=== PATIENT | male | born 1930 | race Caucasian/White ===

== ENCOUNTER 2016-12-31 13:59 | Inpatient (IN) | payer OTHER ==
[2016-12-31] MEDS ORDERED: diphenhydrAMINE 25 MG CAP PO ONE ×2 (14:03→14:27)
[2016-12-31] MEDS ORDERED: FAMOTIDINE 20 MG TAB PO ONE (14:03)
[2016-12-31] MEDS ORDERED: NS 1,000 ML IV ONE (14:03)
[2016-12-31] MEDS ORDERED: DIAZEPAM 5 MG TAB PO ONE (14:03)
[2016-12-31] MEDS ORDERED: ASPIRIN 81 MG CHEWABLE TAB PO ONE (14:04)
[2016-12-31] MEDS ORDERED: MIDAZOLAM 2 MG/2 ML VIAL ONE ×2 (14:21→17:41)
[2016-12-31] MEDS ORDERED: LIDOCAINE 1% 30 ML SDV ONE (14:21)
[2016-12-31] MEDS ORDERED: fentaNYL 100 MCG/2 ML INJ ONE ×2 (14:21→18:11)
[2016-12-31] MEDS ORDERED: IOPAMIDOL (ISOVUE-370) 150 ML BTL IV ONE ×4 (14:22→17:58)
[2016-12-31] MEDS ORDERED: HEPARIN 10,000 UNIT/10 ML MDV ONE (14:22)
[2016-12-31] MEDS ORDERED: VERAPAMIL 5 MG/2 ML VIAL ONE ×2 (14:22→16:12)
--- NOTE | 2016-12-31 14:25 | CPEKG ---
Heart Rate: 61 RR Interval: 984 P-R Interval: 197 QRSD Interval: 146 QT Interval: 472 QTC Interval: 476 P [place]: 79 QRS [place]: 52 T Wave [place]: 177 EKG Severity - ABNORMAL ECG - EKG Impression: ATRIAL-VENTRICULAR DUAL-PACED RHYTHM EKG Impression: UNCHANGED IN COMPARISON TO PRIOR (10-08-16) Electronically Signed By: Sonido Reed 01-Jan-2017 16:53:00
[2016-12-31] MEDS ORDERED: DIAZEPAM 5 MG TAB ONE (14:27)
[2016-12-31] MEDS ORDERED: FAMOTIDINE 20 MG TAB ONE (14:27)
[2016-12-31 14:48] LABS: % IMMATURE GRANULYOCYTES 0.3 % (0.0-1.1); ABSOLUTE IMMATURE GRANULOCYTES 0.02 10^3/uL (0.00-0.10); ADD DIFF? NO; ADD MORPH? NO; ADD SCAN? NO; ATYPICAL LYMPHOCYTE FLAG 0 (0-99); FRAGMENT RBC FLAG 0 (0-99); HEMATOCRIT 48.4 % (40.0-51.0); HEMOGLOBIN 16.8 g/dL (13.7-17.5); LEFT SHIFT FLG 0 (0-99); LIPEMIA HEMOLYSIS FLAG 90 (0-99); MEAN CELL HEMOGLOBIN 33.1 pg (27.9-34.1); MEAN CELL HEMOGLOBIN CONCENTR. 34.7 g/dL (32.4-36.7); MEAN CELL VOLUME 95.3 fL (81.5-99.8); MEAN PLATELET VOLUME 9.9 fL (8.7-11.7); PLATELET CLUMPS FLAG 0 (0-99); PLATELET COUNT 222 10^3/uL (150-400); RED BLOOD CELL COUNT 5.08 10^6/uL (4.40-6.38); RED CELL DISTRIBUTION WIDTH 12.2 % (11.5-15.2)
[2016-12-31 14:55] LABS: INR 1.02 (0.83-1.16); PROTIME(PATIENT) 13.3 SEC (12.0-15.0)
[2016-12-31 15:06] LABS: ANION GAP 12 mEq/L (8-16); CALCIUM 9.5 mg/dL (8.5-10.4); CARBON DIOXIDE 25 mEq/l (22-31); CHLORIDE 107 mEq/L (97-110); CHOLESTEROL 93 mg/dL (140-220); CHOLESTEROL/HDL RATIO 2.66 RATIO (1.00-4.97); GLOMERULAR FILTRATION RATE > 60; GLUCOSE 93 mg/dL (70-100); HIGH DENSITY LIPOPROTEIN 35 mg/dL (40-65); LDL/HDL RATIO 1.14 RATIO (1.00-3.64); LOW DENSITY LIPOPROTEIN 40 mg/dL (80-100); MAGNESIUM 2.3 mg/dL (1.6-2.3); NON-HIGH DENSITY LIPOPROTEIN 58 mg/dL (90-129); POTASSIUM 4.2 mEq/L (3.5-5.2); SODIUM 144 mEq/L (134-144); TRIGLYCERIDE 92 mg/dL (40-150); VERY LOW DENSITY LIPOPROTEINS 18 mg/dL (8-25)
--- NOTE | 2016-12-31 15:37 | SUROPNOTE ---
JACK Operative Report - Surgery Date of Procedure: 12/31/16 Indication: This patient is an 86 year old man, with known coronary artery disease s/p CABGx3 in 2002 (PRECIADO-diag, SVG-LAD, SVG-OM) and mild-moderate right coronary disease at that time, presenting with new onset exertional chest discomfort, which resolves with rest and is responsive to nitroglycerin. [place] cardiovascular class III angina. Nuclear stress test was performed and myocardial perfusion imaging demonstrated a large, moderate intensity reversible defect involving the inferior wall, which is consistent with ischemia and new since 2014. Left heart catheterization indicated secondary to class III angina and intermediate risk non-invasive testing. Procedures performed: 1. Left heart catheterization with left ventricular, selective coronary angiography, and bypass graft angiography. 2. Balloon angioplasty, intravascular ultrasound imaging, intracoronary stent placement x1, and high-pressure post-dilation in the [place] right coronary artery. 3. Intravascular ultrasound imaging, balloon angioplasty, intracoronary stent placement x1 in the [place] diagonal branch. 4. Intravascular ultrasound imaging, balloon angioplasty, and intracoronary stent placement x2 in the [place] left anterior descending. 5. Intravascular ultrasound imaging and intracoronary stent placement x1in the left main. Description of procedure: Description, risks, benefits and alternatives were discussed in detail. Informed consent was obtained. The patient was brought to the catheterization laboratory where a timeout was performed. The right groin was sterilely prepped and draped. 2% lidocaine utilized for local anesthetic. A 6-[place] hemostatic sheath placed right femoral artery utilizing modified Seldinger technique. Diagnostic coronary and bypass graft angiography performed with 6-[place], [place] left-4, [place] right-4, and PRECIADO catheter. All catheters were passed over a 0.035 guidewire. Pigtail catheter was then utilized for left heart catheterization and left ventricular angiography. The obvious culprit lesion is a 95-99% stenosis in the mid right coronary artery. Plans were made for percutaneous intervention. Angiomax was administered. A 6-[place] AL1 short-tip guide catheter with side holes was utilized to engage the right coronary. A short Altavista wire was placed in the right coronary and advanced distally. Intracoronary nitroglycerin and verapamil was administered. A 2.75mm x 20mm Emerge balloon was placed in the mid-distal right coronary and was utilized for 2 inflations to a maximum of 11 atmospheres for pre-dilation. Further intracoronary nitroglycerin and verapamil was administered. Ultrasound catheter was placed and intravascular ultrasound imaging was performed to assess lesion length and reference vessel diameter. A 3.0mm x 38mm Synergy drug-eluting stent was chosen and carefully positioned in the mid right coronary artery to cover the entire lesion. This was deployed to 18 atmospheres for 20 seconds.MARITO 3 flow was restored distally. Next, a 3.25mm x 20mm NC Emerge was chosen for post-dilation of the stented segment, utilized for a total of 3 inflations to a maximum of 23 atmospheres. Intracoronary nitroglycerin and verapamil was administered. Ultrasound catheter was re- introduced and intravascular ultrasound imaging was repeated, which demonstrated excellent result. Wire, ultrasound catheter, and guide catheter were removed. Next, attention was turned to the [place] left anterior descending. A 6-[place] EBU 3.75 guide catheter was utilized to engage the left coronary system. A Samurai wire was placed in the left anterior descending and was advanced distally. Intracoronary nitroglycerin and verapamil was administered. Ultrasound catheter was placed in the LAD and intravascular ultrasound imaging was performed, which demonstrated moderate-severe proximal-mid LAD disease, with up to 85% stenosis in the proximal LAD by intravascular ultrasound. A Altavista wire was placed in the diagonal branch. Ultrasound catheter was placed in the diagonal branch, but would not advance past the mid-vessel. Intravascular ultrasound imaging was performed proximally in the diagonal branch. The ostium of the diagonal branch contains a 75% stenosis extending into the LAD. The mid-segment of the diagonal branch contains at least a 90% stenosis. The original 2.75mm x 20mm Emerge balloon was placed in the proximal diagonal branch, utilized for a total of 3 inflations for a maximum of 14 atmospheres. The 2.75mm x 20mm Emerge balloon was pulled back and redirected into the proximal LAD. This was inflated in the proximal LAD to 14 atmospheres. The Emerge balloon was removed. Further intracoronary nitroglycerin and verapamil was administered. Repeat intravascular ultrasound was performed in the diagonal branch. A 2.5mm x 38mm Synergy drug-eluting stent was chosen and was carefully positioned in the diagonal branch, placed to the ostium. The LAD Samurai wire was pulled back into the guide catheter. The stent was deployed to 16 atmospheres for 15 seconds. Stent balloon was inflated to 18 atmospheres for 10 seconds. The LAD Samurai wire was re-directed into the diagonal branch. The Altavista diagonal wire was pulled back and placed in the LAD through the stent struts. A 2.5mm x 12mm Emerge balloon was placed in the proximal LAD, utilized for a total of 2 inflations to a maximum of 6 atmospheres, however would not cross through the stent struts. Instead, a 1.2mm x 8mm Emerge balloon was placed in the LAD through the stent struts and utilized for a total of 4 inflations to a maximum of 18 atmospheres. The 2.5mm x 12mm Emerge balloon was re-introduced and placed in the LAD through the stent struts, utilized for a total of two inflations to a maximum of 11 atmospheres. Next, a 2.75mm x 38mm Synergy drug- eluting stent was chosen and was carefully positioned in the proximal left anterior descending. Prior to stent deployment, there was a small dissection of the left main noted on angiography. The stent was pulled back even more proximally, extending into the left main. The diagonal wire was pulled back and the stent was deployed to 18 atmospheres for 15 seconds. This appeared to control the dissection. Next, a short [place] wire was placed in the diagonal branch. In preparation for "kissing balloon" angioplasty, the original 2.5mm x 12mm Emerge balloon was placed in the ostial diagonal branch. This was inflated for 6 atmospheres for 10 seconds, however would not cross more distally. Instead, the original 1.2mm x 8mm Emerge balloon was placed in the proximal diagonal branch and was utilized for 3 inflations to a maximum of 20 atmospheres. Balloon was removed. A 2.5mm x 15mm Emerge balloon was utilized and placed in the diagonal branch. The original 2.75mm x 20mm Emerge balloon was re- introduced and placed in the proximal left anterior descending. For "kissing balloon" angioplasty, the 2.5mm Emerge balloon in the diagonal branch and the 2.75mm Emerge balloon in the LAD were utilized for a total of three simultaneous inflations to a maximum of 16 atmospheres. There appears to be a dissection in the ostial left anterior descending or left main. Balloons were removed. Intracoronary nitroglycerin and verapamil was administered. Ultrasound catheter was re-introduced into the diagonal branch and repeat intravascular ultrasound imaging was performed. Ultrasound catheter was re-directed into the left anterior descending and repeat intravascular ultrasound imaging was performed. Further intracoronary nitroglycerin and verapamil was administered. A 3.5mmx 8mm Synergy drug-eluting stent was chosen but would not be positioned as needed. Stent and both wires were removed. A [employer] J wire was placed in the left anterior descending. Ultrasound catheter was re-introduced and intravascular ultrasound imaging was performed in the LAD and left main, confirms that the dissection involves the left main. A 3.5mm x 16mm Synergy drug -eluting stent was chosen to be positioned in the left main, however would not cross. Therefore, a 3.0mm x 12mm Emerge balloon was placed in the left main and LAD, and was inflated for two inflations to a maximum of 13 atmospheres. The balloon was removed. The stent was re-introduced but continued to not cross. A 6 -[place] GuideLiner was placed. 3.0mm x 12mm Emerge balloon was re-introduced and inflated to 6 atmospheres for 10 seconds in the left main/LAD. Balloon was removed. The 3.5mm x 16mm Synergy drug-eluting stent was re-introduced for the third time. GuideLiner was pulled back into the guide catheter. Stent was positioned in the left main and ostial LAD, then was deployed to 16 atmospheres for 25 seconds. Stent balloon was inflated to 16 atmospheres for 10 seconds. Stent balloon and wire removed. Intracoronary nitroglycerin and verapamil was administered. Final orthogonal angiography was performed, with satisfactory result. Dissection appears to be covered. Angio Seal arteriotomy repair was then performed. Findings: 1. Hemodynamics: Aortic pressure 184/90, mean of 120, left ventricular pressure 188/16/25 end-diastolic. There was no significant pull back gradient across the aortic valve. 2. Left ventricle: The left ventricle appears normal in size. Left ventricle is normal shape. Segmental wall motion is abnormal with inferior and posterior hypokinesis and anterolateral pacemaker dyssynchrony, with an ejection fraction of 45%. There is moderate mitral regurgitation, which may be catheter or hypertension induced. The aortic root and ascending aorta appears normal, there is no dissection or aneurysm formation. 3. Coronary angiography: Left main: The left main is a large bifurcating vessel with mild disease. 4. Left anterior descending: By intravascular ultrasound imaging, the left anterior descending contains moderate-severe proximal-mid vessel disease with up to 85% stenosis. There is a large first diagonal branch, with ostial 75% stenosis. 5. Circumflex: The AV groove circumflex has a 40-50% mid lesion and gives rise to a moderately large posterolateral and a large left atrial branch. The obtuse marginal branch is totally occluded and fills via patent SVG, see below. 6. Right coronary: Large dominant vessel. Large PDA, moderately large posterolateral. The right coronary contains a 95-99% mid vessel stenosis, with TIMI2 flow in the PDA and posterolateral. 7. Bypass graft angiography: The SVG to the OM is widely patent and contains mild luminal irregularities. The OM is large and bifurcating, and gives collaterals to a second OM. The SVG to the LAD is totally occluded. The PRECIADO graft to the diagonal branch is occluded. 8. Percutaneous intervention: Guided by intravascular ultrasound imaging, a single drug-eluding stent was placed in the mid right coronary artery followed by high-pressure post-dilation, with excellent result by repeat intravascular ultrasound imaging. Next, the LAD and diagonal branch intervention was guided by intravascular ultrasound, ultimately treated with complex "[place]" stenting technique, with a single drug-eluding stent in the LAD and in the ostial diagonal branch. This was followed by "kissing balloon" angioplasty. There was satisfactory result by repeat intravascular ultrasound imaging of the stent placement, however, this was complicated by left main dissection. The left main was assessed by intravascular ultrasound imaging and a single drug-eluting stent was placed in the left main, extending into the ostial LAD, to cover the dissection. Overall Impression: 1. Severe 95-99% stenosis in the mid right coronary artery, treated with placement of a single drug-eluting stent and high-pressure post-dilation, with excellent result by intravascular ultrasound imaging. 2. Severe proximal LAD and ostial diagonal disease, treated with drug-eluting stent placement utilizing "Culotte" stenting technique in the left anterior descending and diagonal branch, followed by "kissing balloon" angioplasty in the left anterior descending and diagonal branch. This was complicated by dissection of the left main, which was treated with drug-eluting stent placement in the left main extending into the ostial LAD. 3. Severe three-vessel [place] coronary artery disease. 4. Occlusion of the SVG to the LAD and PRECIADO graft to the diagonal branch. 5. Left ventricular dysfunction with inferior and posterior hypokinesis and anterolateral pacemaker dyssynchrony, with an ejection fraction of 45%. Plan: 1. Dual anti-platelet therapy 2. Aggressive risk modification and high dose statin therapy. 3. Medical management of left ventricular dysfunction. 4. Close clinical follow up. Portions of this report were documented by a medical billing manager. I have reviewed this report and agree with the documentation. Report scribed for Dr. Bolivar Sanchez. Report scribed by Haydee Arreaga.
[2016-12-31] MEDS ORDERED: BIVALIRUDIN 250 MG/5 ML VIAL IV ONE ×2 (16:04→17:14)
[2016-12-31] MEDS ORDERED: NITROGLYCERIN 1,500 MCG/15 ML VIAL MISC ONE ×2 (16:05→16:41)
[2016-12-31] MEDS ORDERED: ADENOSINE 90 MG/30 ML VIAL IV ONE (16:17)
[2016-12-31] MEDS ORDERED: TICAGRELOR 90 MG TAB PO ONE (18:29)
[2016-12-31] MEDS ORDERED: CEFAZOLIN 1 GM/DEXTROSE/50 ML BAG IV ONE (18:32)
[2016-12-31] MEDS ORDERED: ATROPINE SULFATE 1 MG/10 ML SYR IVP PRN (18:41)
[2016-12-31] MEDS ORDERED: HYDROCODONE/APAP 5/325 TAB PO PRN (18:41)
[2016-12-31] MEDS ORDERED: OXYCODONE/APAP 5/325 TAB PO PRN (18:41)
[2016-12-31] MEDS ORDERED: LORazepam 2 MG/ML INJ IVP PRN (18:41)
[2016-12-31] MEDS ORDERED: ONDANSETRON 4 MG/2 ML VIAL IVP PRN (18:41)
[2016-12-31] MEDS ORDERED: TEMAZEPAM 15 MG CAP PO PRN (18:41)
[2016-12-31] MEDS ORDERED: NITROGLYCERIN 0.4 MG BTL SL PRN (18:41)
--- NOTE | 2016-12-31 19:02 | CPEKG ---
Heart Rate: 62 RR Interval: 968 P-R Interval: 212 QRSD Interval: 136 QT Interval: 480 QTC Interval: 488 P [place]: 60 QRS [place]: 3 T Wave [place]: 163 EKG Severity - ABNORMAL ECG - EKG Impression: ATRIAL-VENTRICULAR DUAL-PACED RHYTHM Electronically Signed By: Sonido Reed 01-Jan-2017 16:53:09
[2016-12-31] MEDS: D5W 1/2 NS 1,000 ML IV SCH (20:15)
[2016-12-31] MEDS: TICAGRELOR 90 MG TAB PO SCH (21:53)
[2016-12-31] MEDS: ASPIRIN 81 MG CHEWABLE TAB PO SCH (21:53)
[2016-12-31] MEDS: ATORVASTATIN CALCIUM 40 MG TAB PO SCH (21:53)
[2017-01-01] MEDS: D5W 1/2 NS 1,000 ML IV SCH (03:53)
[2017-01-01 06:18] LABS: % IMMATURE GRANULYOCYTES 0.5 % (0.0-1.1); ABSOLUTE IMMATURE GRANULOCYTES 0.04 10^3/uL (0.00-0.10); ADD DIFF? NO; ADD MORPH? NO; ADD SCAN? NO; ATYPICAL LYMPHOCYTE FLAG 0 (0-99); FRAGMENT RBC FLAG 0 (0-99); HEMATOCRIT 37.8 % (40.0-51.0); HEMOGLOBIN 13.2 g/dL (13.7-17.5); LEFT SHIFT FLG 0 (0-99); LIPEMIA HEMOLYSIS FLAG 90 (0-99); MEAN CELL HEMOGLOBIN CONCENTR. 34.9 g/dL (32.4-36.7); MEAN CELL VOLUME 94.5 fL (81.5-99.8); MEAN PLATELET VOLUME 10.1 fL (8.7-11.7); PLATELET CLUMPS FLAG 0 (0-99); PLATELET COUNT 194 10^3/uL (150-400); RED CELL DISTRIBUTION WIDTH 12.5 % (11.5-15.2)
[2017-01-01 06:26] LABS: ALBUMIN 2.9 g/dL (3.5-5.0); ANION GAP 6 mEq/L (8-16); ASPARTATE AMINOTRANSFERASE 18 IU/L (17-59); BILIRUBIN,TOTAL 0.7 mg/dL (0.1-1.4); CALCIUM 8.4 mg/dL (8.5-10.4); CARBON DIOXIDE 24 mEq/l (22-31); CHLORIDE 107 mEq/L (97-110); CREATININE 0.9 mg/dL (0.7-1.3); GLOMERULAR FILTRATION RATE > 60; GLUCOSE 162 mg/dL (70-100); LACTATE DEHYDROGENASE 303 IU/L (313-618); MAGNESIUM 2.1 mg/dL (1.6-2.3); POTASSIUM 3.9 mEq/L (3.5-5.2); SODIUM 137 mEq/L (134-144)
[2017-01-01 06:34] LABS: TROPONIN I 0.187 ng/mL (0-0.034)
[2017-01-01 06:36] LABS: CREATINE KINASE-MB FRACTION 4.68 ng/mL (0-3.19)
[2017-01-01 06:39] LABS: CK-MB INTERPRETATION POSITIVE (NEGATIVE)
[2017-01-01] MEDS: TICAGRELOR 90 MG TAB PO SCH ×2 (08:35→21:48)
[2017-01-01] MEDS: LEVOTHYROXINE 125 MCG TAB PO SCH (08:35)
--- NOTE | 2017-01-01 09:17 | CPEKG ---
Heart Rate: 66 RR Interval: 909 P-R Interval: 188 QRSD Interval: 144 QT Interval: 472 QTC Interval: 495 P [place]: 74 QRS [place]: 51 T Wave [place]: 165 EKG Severity - ABNORMAL ECG - EKG Impression: ATRIAL-VENTRICULAR DUAL-PACED RHYTHM Electronically Signed By: Sonido Reed 03-Jan-2017 08:45:50
--- NOTE | 2017-01-01 10:17 | SOAPPROG ---
JOEL Progress Note Assessment/Plan: Assessment: Cardiology (SHAINA/Daniel) 1. S/p complex multivessel PCI yesterday c/b LM/ostial LAD dissection. Diagnostic cath showed severe [place] RCA disease as well as totally occluded SVG to LAD. DESx1 [place] RCA, DESx1 D1 and DESx1 proximal LAD by culotte technique, followed by DESx1 LM/ostial LAD due to dissection. On DAPT with aspirin and Brilinta. 2. History of 3 vessel CABG in 2002 in [place]. As above LAD graft is totally occluded. Unclear on PRECIADO to diag. SVG to OM is patent. 3. History of Mobitz II w/ dual chamber PPM in place. 4. Hyperlipidemia. 5. Hypothyroid. Plan: 1. Serial cardiac enzymes with trop, CPK, CKMB throughout today. 2. Await results of clopidogrel genetic testing. Currently on DAPT with aspirin and Brilinta which has caused dyspnea. 3. Continue current DAPT and all other medications. 4. Change to inpatient status. Subjective: Shalom did well overnight but woke this morning at 6 am with chest discomfort rating 2/10 c/w his prior angina. He denies any other associated symptoms. He was given a sublingual NTG 0.4 mg at 0953 which helped relieve pain but resulted in hypotension which is improving. He had associated clamminess. Initial trop this am was 0.187, EKG is stable w/o acute changes. D/w Dr. Sanchez and we will continue to observe him throughout the day. Right groin puncture site is uncomplicated. Objective: Vital Signs Temp Pulse Resp BP Pulse Ox 36.5 C 80 16 126/73 H 97 01/01/17 08:00 01/01/17 09:58 01/01/17 08:00 01/01/17 09:58 01/01/17 08:00 Laboratory Results 01/01/17 04:03 01/01/17 04:03 12/31/16 01/01/17 01/02/17 05:59 05:59 05:59 Intake Total 2600 Output Total 1600 175 Balance 1000 -175 PT 13.3 SEC (12.0-15.0) 12/31/16 14:30 INR 1.02 (0.83-1.16) 12/31/16 14:30 Physical Exam - Physical Exam General Appearance: WD/WN, alert, no apparent distress Respiratory: chest non-tender, lungs clear, normal breath sounds Cardiac/Chest: normal peripheral pulses, regular rate, rhythm Peripheral Pulses: 2+: dorsalis-pedis (R), dorsalis-pedis (L) Abdomen: normal bowel sounds, non-tender, soft Neuro/Psych: no motor/sensory deficits, alert, normal mood/affect, oriented x 3
[2017-01-01 14:08] LABS: COLOR YELLOW; LEUKOCYTE ESTERASE,URINE TRACE (NEGATIVE); NITRITE,URINE NEGATIVE (NEGATIVE)
[2017-01-01 14:20] LABS: RBC,URINE 25-50 /hpf (0-3)
[2017-01-01 18:13] LABS: CK-MB INTERPRETATION POSITIVE (NEGATIVE)
[2017-01-01 19:04] LABS: CK-MB INTERPRETATION POSITIVE (NEGATIVE)
[2017-01-01] MEDS: ASPIRIN 81 MG CHEWABLE TAB PO SCH (21:44)
[2017-01-01] MEDS: ATORVASTATIN CALCIUM 40 MG TAB PO SCH (21:44)
[2017-01-02 00:33] LABS: CK-MB INTERPRETATION POSITIVE (NEGATIVE)
[2017-01-02 04:52] VITALS: O2SAT 94
[2017-01-02] MEDS: LEVOTHYROXINE 125 MCG TAB PO SCH (07:11)
[2017-01-02 07:39] VITALS: BP 115/76; PULSE 86; RESP 21; TEMP 98.5
--- NOTE | 2017-01-02 07:59 | SOAPPROG ---
JOEL Progress Note Assessment/Plan: Assessment: Cardiology (SHAINA/Daniel) 1. S/p complex multivessel PCI yesterday c/b LM/ostial LAD dissection. Diagnostic cath showed severe [place] RCA disease as well as totally occluded SVG to LAD. DESx1 [place] RCA, DESx1 D1 and DESx1 proximal LAD by culotte technique, followed by DESx1 LM/ostial LAD due to dissection. On DAPT with aspirin and Brilinta. 2. History of 3 vessel CABG in 2002 in [place]. As above LAD graft is totally occluded. Unclear on PRECIADO to diag. SVG to OM is patent. 3. History of Mobitz II w/ dual chamber PPM in place. 4. Hyperlipidemia. 5. Hypothyroid. 6. New 3+ glucosuria. 7. Hematuria, resolved. Plan: 1. Repeat labs this am, CBC, chem7, cardiac enzymes, HbA1c. 2. Await results of clopidogrel genetic testing. Currently on DAPT with aspirin and Brilinta which has caused dyspnea. 3. Continue current DAPT and all other medications. 4. Discharge to home today. 5. Follow up visit to be moved up hopefully to January [address] Sanchez, previously scheduled for 01/16. 6. Cardiac rehab at [facility]. Subjective: Feeling much better today. Denies any recurrent chest discomfort. The hematuria he was experiencing yesterday has resolved. Groin continues to be non-tender. Wants to go home. Prefers to do cardiac rehab at [facility]. Objective: Vital Signs Temp Pulse Resp BP Pulse Ox 36.9 C 86 21 H 115/76 94 01/02/17 07:36 01/02/17 07:36 01/02/17 07:36 01/02/17 07:36 01/02/17 07:36 Laboratory Results 01/01/17 04:03 01/01/17 04:03 01/01/17 01/02/17 01/03/17 05:59 05:59 05:59 Intake Total 2600 1270 Output Total 1600 1000 Balance 1000 270 PT 13.3 SEC (12.0-15.0) 12/31/16 14:30 INR 1.02 (0.83-1.16) 12/31/16 14:30 - Time Spent With Patient Time Spent With Patient: 45 minutes spent in coordinating care, physical exam and documentation. Physical Exam - Physical Exam General Appearance: WD/WN, alert, no apparent distress Respiratory: chest non-tender, lungs clear, normal breath sounds Cardiac/Chest: normal peripheral pulses, regular rate, rhythm, No edema Neuro/Psych: no motor/sensory deficits, alert, normal mood/affect, oriented x 3 ICD10 Worksheet Patient Problems: Problems Problem Status Onset Coronary artery disease Acute
[2017-01-02] MEDS: TICAGRELOR 90 MG TAB PO SCH (08:29)
[2017-01-02 09:32] LABS: % IMMATURE GRANULYOCYTES 0.5 % (0.0-1.1); ABSOLUTE IMMATURE GRANULOCYTES 0.04 10^3/uL (0.00-0.10); ADD DIFF? NO; ADD MORPH? NO; ADD SCAN? NO; ATYPICAL LYMPHOCYTE FLAG 10 (0-99); FRAGMENT RBC FLAG 0 (0-99); HEMATOCRIT 39.3 % (40.0-51.0); HEMOGLOBIN 13.6 g/dL (13.7-17.5); LEFT SHIFT FLG 0 (0-99); LIPEMIA HEMOLYSIS FLAG 90 (0-99); MEAN CELL HEMOGLOBIN 32.1 pg (27.9-34.1); MEAN CELL HEMOGLOBIN CONCENTR. 34.6 g/dL (32.4-36.7); MEAN CELL VOLUME 92.7 fL (81.5-99.8); MEAN PLATELET VOLUME 9.9 fL (8.7-11.7); PLATELET CLUMPS FLAG 0 (0-99); PLATELET COUNT 206 10^3/uL (150-400); RED BLOOD CELL COUNT 4.24 10^6/uL (4.40-6.38); RED CELL DISTRIBUTION WIDTH 12.5 % (11.5-15.2)
[2017-01-02 09:42] LABS: ANION GAP 14 mEq/L (8-16); CALCIUM 8.8 mg/dL (8.5-10.4); CARBON DIOXIDE 22 mEq/l (22-31); CHLORIDE 107 mEq/L (97-110); CREATININE 0.9 mg/dL (0.7-1.3); GLOMERULAR FILTRATION RATE > 60; GLUCOSE 216 mg/dL (70-100); POTASSIUM 3.7 mEq/L (3.5-5.2); SODIUM 143 mEq/L (134-144)
[2017-01-02 09:57] LABS: HEMOGLOBIN A1C 6.1 % (4.0-6.0)
[2017-01-02 10:05] LABS: CREATINE KINASE-MB FRACTION 5.44 ng/mL (0-3.19)
[2017-01-02 10:11] LABS: CK-MB INTERPRETATION POSITIVE (NEGATIVE)
[2017-01-03 14:25] LABS: 2C19S INTERPRETATION See Comments
--- NOTE | 2017-01-08 10:00 | GDS ---
DISCHARGE DIAGNOSES: 1. Status post complex multivessel stenting. See below. 2. History of three-vessel coronary artery bypass grafting in 2002. 3. History of symptomatic Mobitz II with dual-chamber permanent pacemaker in place. 4. Hyperlipidemia. 5. Hypothyroidism. 6. Glucosuria. 7. Acute hematuria. HOSPITAL PROCEDURES: 1. Left heart catheterization with left ventriculography, selective [place] coronary angiography, an d bypass graft angiography. 2. Balloon angioplasty, IVUS, drug-eluting stent placement x1 in [place] right coronary artery. 3. Balloon angioplasty, IVUS, drug-eluting stent placement x1 in the [place] diagonal branch. 4. IVUS, balloon angioplasty, and drug-eluting stent placement x2 in [place] left anterior descendin g artery. 5. IVUS and drug-eluting stent placement x1 in the left main coronary artery. The patient is a pleasant 86-year-old male with diagnoses as above who originally presented to our o ffice on December 20 with complaint of 2-3 weeks of classic anginal symptoms when walking out to g et his mail. This was followed by subsequent nuclear imaging that showed a prominent inferior wall perfusion defect, and it was decided to proceed with elective coronary angiography. The patient was taken to the dairy lab technician on December 31, at which time he was found to have severe [place] right alysha nary artery disease in this vessel that does not have bypass grafting, along with complete occlusion of his sequential LAD and diagonal saphenous vein graft. This was ultimately treated with a single drug-eluting stent to his [place] right coronary artery along with a single stent in the diagonal br anch and 2 stents in his [place] left anterior descending. The procedure was complicated by dissecti on in the proximal LAD and left main, which was treated with an additional stent. Left ventriculogr aphy revealed an ejection fraction of 45% with inferior and posterior hypokinesis along with moderat e mitral valve regurgitation. He was continued on dual antiplatelet therapy with aspirin 81 mg and Brilinta 90 mg twice daily. The morning of the January 01, the patient was feeling quite fatigued; and due to the complicatio ns of his procedure the prior day, it was decided to watch him in the hospital for an additional day and perform serial cardiac enzymes to rule out any evolving ischemic damage from his stenting proce dure. The patient's troponins very slowly up trended throughout the day and peaked at 3.280 on the night of January 01 and had begun to down trend to 2.3 on the day of discharge. The patient had complained of blood in his urine at the beginning of starting to void, which generally cleared by th e time he was finished voiding. This happened, according to him, half a dozen times but had resolve d by the day of discharge. A urine sample was collected that did indeed show 3+ blood in his urine along with unexpected 3+ glucose in his urine. The patient states that he has been prediabetic in t he past. Hemoglobin A1c was checked and was 6.1%, which is consistent with his prior level of 6.2%. The patient feels much better today compared to yesterday, and he is ready to go home. On the week leading up to his catheterization, he was started on a loading dose of 180 mg of Brilinta which caus ed dyspnea, which has slowly resolved. His Plavix genetic testing is still pending. Please see dis charge instructions as below. DISCHARGE MEDICATIONS: Aspirin 81 mg p.o. daily, Brilinta 90 mg p.o. b.i.d., levothyroxine 125 mcg p.o. daily, atorvastatin 80 mg p.o. daily, nitroglycerin 0.4 mg sublingually p.r.n. chest pain, mult ivitamin daily. DISCHARGE INSTRUCTIONS: The patient will be discharged today in good condition. As above, his trop onins have begun to down trend. Due to the extensiveness of his stenting procedure, I would like to keep him on Brilinta until we receive the results of his Plavix genetic testing. Otherwise, he dayanara l continue on his other home medications. Overall, his blood pressure has been well controlled duri ng the procedure, and we have not begun beta blockade due to significant fatigue since his procedure on December 31. This very well may be started as an outpatient. Otherwise, he has elected to [facility] cardiac rehab, preferably at [facility] because it is closer to his home in [place]. Hi s right groin puncture site is uncomplicated but may develop a very small hematoma over the course o f the week. He has been instructed on precautions for increase in pain, swelling, or signs of infec tion. Regarding the glucose in his urine, I have recommended he follow up with his primary care pro vider, Dr. Andrea. /[id number]/MODL
== END 2017-01-02 10:41 | disposition home or self-care (01) | DRG 246 ==
LOC: FCATH 13:59 → F2W 18:37 → OBSVTOIN 01-01 16:15
PROVIDERS: ADMIT Internal Medicine Interventional Cardiology; ATTEND Internal Medicine Interventional Cardiology
DX: I25.118 Atherosclerotic heart disease of native coronary artery with other forms of angina pectoris (principal); I25.718 Atherosclerosis of autologous vein coronary artery bypass graft(s) with other forms of angina pectoris; I65.23 Occlusion and stenosis of bilateral carotid arteries; E78.5 Hyperlipidemia, unspecified; E03.9 Hypothyroidism, unspecified; Z95.0 Presence of cardiac pacemaker; Z95.1 Presence of aortocoronary bypass graft
CPT/HCPCS: 81225-90; C1725; C1753; C1760; C1769; C1874; C1887; C9600; C9601; J0153; J0583; J0690; J1644; J2250; J3010; Q9967

== ENCOUNTER → 2017-03-18 | Outpatient (CLI) | payer OTHER | LOC: BRMIMAGING 11:12 | PROVIDERS: ATTEND Physician Assistant Medical | DX: R09.89 Other specified symptoms and signs involving the circulatory and respiratory systems (principal); I65.21 Occlusion and stenosis of right carotid artery | CPT/HCPCS: 93880-PO ==